=== PATIENT | male | born 1975 | race Caucasian/White ===

== ENCOUNTER 2017-09-02 11:36 | Emergency (ER) | payer MEDICAID, OTHER ==
[~2017-09-02] VITALS: Ht 167.6 cm; Wt 122.7 kg
[2017-09-02 12:30] VITALS: BP 164/112
--- NOTE | 2017-09-02 12:33 | NUR ---
AFTER FLU SWAB SAMPLE TAKEN PT AMBULATES BACK TO THE LOBBY
--- NOTE | 2017-09-02 14:52 | NUR ---
pt seen and discharged by
== END 2017-09-02 14:52 | disposition home or self-care (01) ==
LOC: MED 11:36
DX: J11.1 Influenza due to unidentified influenza virus with other respiratory manifestations (principal); J06.9 Acute upper respiratory infection, unspecified
CPT/HCPCS: 99283

== ENCOUNTER 2020-03-12 23:13 | Emergency (ER) | payer OTHER, SELFPAY ==
[~2020-03-12] VITALS: Ht 167.6 cm; Wt 113.4 kg
[2020-03-12 23:16] VITALS: BP 131/89
--- NOTE | 2020-03-12 23:49 | NUR ---
PT TAKEN TO BED 6
--- NOTE | 2020-03-13 00:02 | NUR ---
Dr. Coleman examining patient.
[2020-03-13] MEDS ORDERED: NACL 0.9% 1,000 ML IV ONE (00:05)
--- NOTE | 2020-03-13 00:19 | NUR ---
44M PRESENTS TO ED WITH C/O HEADACHE X 3 DAYS. REPORTS FEELING OF NAUSEA AND DIZZINESS. A/O X 4, GCS 15. CBL SOUNDS. RR EVEN AND UNLABORED. BOWEL SOUNDS NORMOACTIVE. ABDOMEN SOFT AND NONTENDER. PMHX: HTN, HYPERTHYROIDISM, DM . NKA NEGATIVE FOR COVID SCREENING. WEARIGN MASK
--- NOTE | 2020-03-13 00:22 | NUR ---
X-Ray at bedside.
--- NOTE | 2020-03-13 00:34 | NUR ---
COVID SWAB COLLECTED AND SENT TO LAB.
[2020-03-13 00:37] LABS: HEMATOCRIT 41.7 % (36-52); MEAN CORPUSCULAR HEMOGLOBIN 28 pg (27-31); MONOCYTES # (AUTO) 0.4 K/uL (0.8-1.0); WHITE BLOOD COUNT (AUTO) 4.1 K/uL (4.8-10.8)
[2020-03-13 00:44] LABS: BASOPHILS % (AUTO) 0.7 % (0.0-2.0); EOSINOPHILS % (AUTO) 0.6 % (0.0-4.0); LYMPHOCYTES # (AUTO) 1.1 K/uL (2.0-11.5); LYMPHOCYTES % (AUTO) 25.8 % (20.5-51.1); MEAN CORPUSCULAR HGB CONC 34 g/dL (33-37); MEAN CORPUSCULAR VOLUME 81.9 fL (80-94); MONOCYTES % (AUTO) 9.1 % (1.7-9.3); NEUTROPHILS # (AUTO) 2.6 K/uL (1.8-7.7); NEUTROPHILS % (AUTO) 63.8 % (42.2-75.2); PLATELET COUNT (AUTO) 177 K/uL (140-450); RED BLOOD CELL COUNT(AUTO) 5.09 MIL/uL (4.20-6.10)
[2020-03-13 00:53] LABS: ANION GAP 15.8 (8-16); CARBON DIOXIDE 26.4 mmol/L (21-32); CREATININE 1.1 mg/dL (0.6-1.3); POTASSIUM 4.2 mmol/L (3.5-5.1)
--- NOTE | 2020-03-13 01:50 | NUR ---
Patient discharged with v/s stable. Written and verbal after care instructions given and explained. Patient verbalized understanding. Ambulatory with steady gait. All questions addressed prior to discharge. Advised to follow up with PMD. Pt walks in steady gait and no other concerns noted. Pt d/c
[2020-03-13 01:52] VITALS: BP 125/81
--- NOTE | 2020-03-16 09:15 | NUR ---
LATE ENTRY- NORMAL SALINE 0.9% IV FLUIDS DISCONTINUED AT 0150.
== END 2020-03-13 01:50 | disposition home or self-care (01) ==
LOC: EEVIPCON 23:13 → MED 23:13
DX: R11.0 Nausea (principal); R53.1 Weakness; R50.9 Fever, unspecified
CPT/HCPCS: 71045; 80048; 85025; 99284; J7030; Q0092; U0003